=== PATIENT | male | born 1970 | race Caucasian/White ===

== ENCOUNTER 2024-06-08 23:09 | Emergency (ER) | payer MEDICARE, OTHER, SELFPAY ==
[2024-06-08 23:06] VITALS: BP 149/111; PULSE 107; RESP 20; TEMP 36.7; O2SAT 98
[2024-06-08 23:15] VITALS: RESP 20
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
[2024-06-08] MEDS: LORazepam 0.5 MG TAB PO (23:31)
[2024-06-08 23:44] LABS: Abs Immature Grans 0.03 10^3/uL (0.0-0.06); Absolute Basophil Count 0.08 10^3/uL (0.0-0.2); Absolute Eosinophil Count 0.14 10^3/uL (0.0-0.7); Absolute Lymphocyte Count 2.15 10^3/uL (1.2-3.4); Absolute Monocyte Count 0.71 10^3/uL (0.1-0.8); Absolute Neutrophil Count 7.93 10^3/uL (1.2-6.7); Basophils % 0.7 %; Eosinophils % 1.3 %; HCT 42.3 % (40.0-50.0); HGB 14.6 g/dL (13.5-17.5); Immature Grans % 0.3 %; Lymphocytes % 19.5 %; MCH 31.1 pg (27.0-33.0); MCHC 34.5 % (32.0-36.0); MCV 90 fL (80-95); MPV 8.9 fL (8.0-11.0); Monocytes % 6.4 %; Neutrophils % 71.8 %; Platelet Count 210 10^3/uL (130-400); RBC 4.69 10^6/uL (4.36-5.78); RDW 13.4 % (11.8-14.1); RDW-SD 44.7 fL; WBC 11.05 10^3/uL (4.4-10.8)
[2024-06-09] LABS: ALT 59 U/L (16-63); AST 52 U/L (15-37); Albumin 3.8 g/dL (3.4-5.0); Alkaline Phosphatase 66 U/L (46-116); Anion Gap 12.2 mmol/L (3-11); BUN 15 mg/dL (7-18); Bilirubin, Total 0.92 mg/dL (0.2-1.0); CO2 26.8 mmol/L (21.0-32.0); CREATININE 0.9 mg/dL (0.70-1.30); Calcium 8.8 mg/dL (8.5-10.1); Chloride 107 mmol/L (98-107); ETHANOL BLOOD 16.4 mg/dL (<10); Estimated GFR 102.76 (mL/min/1.73m2); Glucose 90 mg/dL (74-106); Potassium 3.9 mmol/L (3.5-5.1); Sodium 146 mmol/L (136-145); Total Protein 6.6 g/dL (6.4-8.2)
[2024-06-09] MEDS: Ketorolac 15 MG/ML VIAL IM ×2 (00:38→05:31)
[2024-06-09] MEDS: Acetaminophen 500 MG TAB 1000 MG PO (00:38)
[2024-06-09] MEDS: LORazepam 0.5 MG TAB PO (08:11)
[2024-06-09] MEDS: Nicotine 4 MG GUM CH (08:11)
--- NOTE | 2024-06-09 09:46 | CMSP_ITS ---
Date of service: 06/09/24 Time of Service: 09:46 Care Management Safety Plan Status Status: Voluntary Reason for Wait Reason for Wait: Assessment/Screening Safety Plan Safety Plan: VOLUNTARY FOR INPATIENT PSYCHIATRIC STABILIZATION.? Patient is appropriate in all interactions since arriving at [facility]; Pt has demonstrated appropriate coping and communication skills, has articulated his or her needs and concerns and is fully engaged during staff interactions. Safety plan has been established with patient, and care team, to adhere to patient goals, identify restrictions based on behavioral status, address nutrition, and determine allowed personal belongings, tools for hygiene and personal care. Determine level of activity including ambulation, level of super vision, visitors, and determine privileges based on behaviors and level of engagement by pt. VOLUNTARY SAFETY PLAN: 1. Will remain on suicide precautions, in paper clothes 2. Will remain in Zone B under direct supervision of one-on-one staff at all times provided by [employer]; ISABEL, [employer] knitting inspector. 3. May have paper cups, plates, finger foods as well as a cardboard spoon with which to eat meals. 4. Follow [facility] Management of the Admitted Behavioral Health Patient policy. 5. Shower available in Zone B without restriction. 6. Personal belongings-soft items permitted at RN discretion. 7. Visitors-none at this time. 8. Activities: soft cart items approved per RN discretion. 9.? Bathroom available in Zone B without restriction. 10. Phone: limited to [facility] cordless phone at RN discretion. Due to VOLUNTARY status, if patient wishes to leave [facility], staff will contact [facility] Crisis Screener ([phone]) and Pigment Furnace Tender ([phone]) as soon as possible. In the event of elopement, notify [place] [employer] ([phone]). Patient is currently voluntarily at [facility] and seeking inpatient admission when a bed becomes available. [facility] Frontline Customer Accounts Advisor will continue seeking placement. Please contact the Pigment Furnace Tender ([phone]) and [facility] Customer Accounts Advisor ([phone]) for any needed changes in the Safety Plan. Safety plan has been provided to interdepartmental care team.
--- NOTE | 2024-06-09 12:16 | ED.PROG_ITS ---
Date of service: 06/09/24 Time of Service: 12:17 Medical Decision Making Patient was signed out to me by my colleague. Please refer to her HPI, physical exam, assessment and plan. Patient was seen and assessed by mental health both on Skype/Zoom as well as in person. Mental health does not feel that the simon ent is a threat to herself. Patient denies any suicidal ideations or homicidal ideations. Multiple resources have been given to the patient, the patient's clothes have been cleaned, and patient feels ready for discharge. Patient [facility] be [facility] [place] [facility] for further watching and resources as recommended by her mental health advocates. Patient stable for discharge. Discussed red flags for which to return. I have extensively reviewed the treatment plan and discharge instructions with the patient. I have addressed all patient concerns at this time. The patient was made aware of what symptoms to monitor for that would warrant a return to the emergency department. Discussed the plan with the patient, they demonstrate verbal understanding and agreement with our assessment and plan at this time. The documentation in this chart was dictated using [employer] dictation software. Please excuse any dictation errors. Quality:SDOH Health Related Social Needs: No Data to Display Sign Out Sign Out Data: Sign Out Comment: PTSD, anxiety. Voluntary, medically cleared, no home meds. Pending [facility] re-eval in the morning. Last updated by Carissa Tyler MD at 06/09/24 06:41 Discharge Plan Disposition Patient Disposition: Home Condition: Good Discharge Details Chief Complaint: Anxiety Clinical Impression: Stress and adjustment reaction Primary Care Provider: Unknown,Unknown ED Provider: Kings Dougherty Home Meds and New Rx's Prescriptions: No Action No Known Home Meds Discharge Instructions Additional Instructions: Please follow-up closely with your mental health advocates. Please utilize the outpatient resources that have been provided to you. If you notice any worsening of your symptoms, or any new symptoms such as vomiting, diarrhea, fever, chills, shortness of breath, chest pain, numbness, weakness, or fainting , please return immediately to the emergency department for reevaluation. Please follow up with your primary care provider as soon as possible for reassessment and reevaluation. As always, it was a pleasure participating in your medical care today.
== END 2024-06-09 12:59 | disposition home or self-care (01) ==
PROVIDERS: Student in an Organized Health Care Education/Training Program; Emergency Provider Student in an Organized Health Care Education/Training Program
DX: F43.22 Adjustment disorder with anxiety (principal); Z73.3 Stress, not elsewhere classified
CPT/HCPCS: 00123; 80053; 96372; 99284; 80320; 85025; J1885